=== PATIENT | female | born 1985 | race Caucasian/White ===

== ENCOUNTER 2016-09-29 12:06 | Emergency (ER) | payer OTHER ==
[2016-09-29] MEDS ORDERED: MOTRIN PO ONE (18:29)
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
[2016-09-29 18:52] VITALS: BP 130/88
== END 2016-09-29 18:52 | disposition home or self-care (01) ==
LOC: ED 12:06
DX: S46.812A Strain of other muscles, fascia and tendons at shoulder and upper arm level, left arm, initial encounter (principal); S46.912A Strain of unspecified muscle, fascia and tendon at shoulder and upper arm level, left arm, initial encounter; S13.4XXA Sprain of ligaments of cervical spine, initial encounter
CPT/HCPCS: 99283